=== PATIENT | female | born 1995 | race Caucasian/White ===

== ENCOUNTER 2017-10-20 21:21 | Emergency (ER) | payer OTHER ==
[2017-10-20 21:27] VITALS: TEMP 99.1
[2017-10-20] MEDS ORDERED: IPRATROPIUM/ALBUTEROL 3 ML DEYVIAL IH ONE (21:42)
--- NOTE | 2017-10-20 22:03 | EDPHY ---
H & P Time Seen by Provider: 10/20/17 21:30 HPI/ROS: This patient presents with cough of 5 days duration with increased frequency of her dry cough today. She reports having associated mild shortness of breath today and slight feeling of wheezing. She is accompanied by her mother who brought her here by private vehicle for evaluation. Her mother explains that this patient often gets wheezing when she has viral illnesses. She has been prescribed albuterol in the past for these episodes. The family plans to leave town this weekend and they are requesting albuterol for her symptoms. Patient reports associated coryza over the same period of time. She has a mild generalized headache similar to prior headaches that improves with antipyretics. She has been taking guaifenesin and NyQuil with minimal improvement. No other exacerbating or alleviating factors are noted. ROS: Constitutional: No fevers or chills. No significant fatigue. HEENT: No sinus pain. Mild sore throat that she attributes to cough. No ear pain. Pulmonary: As per HPI. No pleuritic pain. No hemoptysis. Cardiovascular: No lightheadedness or chest pain GI: No nausea vomiting. She is having normal bowel movements. : No complaints. Last menstrual period was 3 weeks ago-normal timing. Musculoskeletal: Mild myalgias that have improved since the onset of the illness. 7 point ROS is otherwise negative Past Medical/Surgical History: Reactive airway disease by the patient's description Smoking Status: Light smoker Physical Exam: Physical Exam Vital signs are normal. General: No acute distress HEENT: Nose: Clear discharge bilaterally. No sinus tenderness to percussion. Ears: External canals and tympanic membranes are clear with no erythema or abnormal findings bilaterally. Oropharynx: No erythema or exudates. No dysphonia. No drooling or stridor. Eyes: Pupils equal and react to light. Extraocular motions are intact. Neck: Supple with no meningismus. No lymphadenopathy Lungs: Mild expiratory wheeze bilaterally. No rales or rhonchi. Cardiac: Regular rate and rhythm with no murmur gallop or rub Skin: No rash or pallor. Neuro: Alert with no focal deficits noted. Initial differential diagnosis: URI with cough, reactive airway disease, viral bronchitis Constitutional: Initial Vital Signs Temperature (C) 37.3 C 10/20/17 21:24 Heart Rate 102 H 10/20/17 21:24 Respiratory Rate 18 02/02/18 21:24 Blood Pressure 132/89 H 10/20/17 21:24 O2 Sat (%) 97 10/20/17 21:24 O2 Delivery Mode Room Air Allergies/Adverse Reactions: No Known Allergies Allergy (Unverified 04/11/11 18:56) Home Medications: Medication Instructions Recorded Albuterol Hfa Anes Only [Proair 2 puffs IH Q4 PRN #1 mdi 10/20/17 Hfa Icu (*)] Benzonatate [Tessalon Pearles (RX)] 100 - 200 mg PO TID PRN #20 cap 10/20/17 Fluticasone Hfa 220 Mcg [Flovent 2 puffs IH DAILY #1 mdi 10/20/17 220 MCG Hfa MDI (*)] Paxil 20 PO DAILY 10/20/17 MDM/Departure - MDM Medications Given: Discontinued Medications Albuterol Sulfate (Proventil Inh Prepack) 1 mdi TAKEHOME EDNOW ONE Stop: 10/20/17 22:30 Last Admin: 10/20/17 22:32 Dose: 1 mdi Albuterol/Ipratropium (Duoneb) 3 ml IH EDNOW ONE Stop: 10/20/17 21:43 Last Admin: 10/20/17 21:47 Dose: 3 ml Benzonatate (Tessalon Pearles) 200 mg PO EDNOW ONE Stop: 10/20/17 22:19 Last Admin: 10/20/17 22:24 Dose: 200 mg ED Course/Re-evaluation: DuoNeb with resolution of wheezing. She had persistent frequent dry cough thereafter however. This resolved after Tessalon Perle and albuterol inhaler with spacer administered to demonstrate technique prior this patient is discharge home with take-home albuterol. Discussion: Findings are most consistent with viral URI with cough with reactive airway disease exacerbation. This is a mild exacerbation she clinically well with normal respiratory rate, no hypoxia and resolution of wheeze after treatment with albuterol. I did prescribe Flovent in addition I counseled her regarding albuterol Flovent and viral URI with reactive airway disease. She is comfortable time of discharge home. - Depart Disposition: Home, Routine, Self-Care Clinical Impression: Viral URI with cough Reactive airway disease Qualifiers: Asthma severity: mild Asthma persistence: intermittent Asthma complication type : with acute exacerbation Qualified Code(s): J45.21 - Mild intermittent asthma with (acute) exacerbation Condition: Good Instructions: Benzonatate (By mouth), Albuterol (By breathing), Fluticasone ( By breathing), Upper Respiratory Infection (ED), Reactive Airways Disease (ED) Additional Instructions: Diagnosis: 1. Viral URI with cough 2. Reactive airway disease Plan: Humidifier Albuterol inhaler with spacer for cough, wheeze or shortness of breath Tessalon Perles for cough prevents sleep at night if needed. Add Flovent steroid inhaler if the cough persists beyond the next 5-7 days despite the albuterol. Take the Flovent for 10-14 days if she starts it. Return for any significant worsening such as high fevers, shortness of breath despite albuterol or other concerns. Prescriptions: Albuterol Hfa Anes Only [Proair Hfa Icu (*)] 2 puffs IH Q4 PRN #1 mdi PRN Reason: Wheezing Benzonatate [Tessalon Pearles (RX)] 100 - 200 mg PO TID PRN #20 cap PRN Reason: cough Fluticasone Hfa 220 Mcg [Flovent 220 MCG Hfa MDI (*)] 2 puffs IH DAILY #1 mdi Referrals: SANDRO SAINI [Primary Care Provider] - As per Instructions
[2017-10-20] MEDS ORDERED: BENZONATATE 100 MG CAP PO ONE (22:18)
[2017-10-20] MEDS ORDERED: ALBUTEROL INH PREPACK MDI TAKEHOME ONE ×2 (22:29→22:30)
[2017-10-20 22:37] VITALS: BP 118/81; PULSE 81; RESP 16; O2SAT 96
== END 2017-10-20 22:30 | disposition home or self-care (01) ==
LOC: CED 21:21
DX: J45.21 Mild intermittent asthma with (acute) exacerbation (principal); J06.9 Acute upper respiratory infection, unspecified; F17.200 Nicotine dependence, unspecified, uncomplicated